=== PATIENT | female | born 1990 | race Caucasian/White ===

== ENCOUNTER 2024-07-29 17:47 | Emergency (ER) | payer SELFPAY ==
[~2024-07-29] VITALS: Ht 149.9 cm; Wt 63.6 kg
[2024-07-29] VITALS (7 sets, daily range): BP systolic 126–155; BP diastolic 58–91
[2024-07-29] MEDS ORDERED: SODIUM CHLORIDE 0.9% 1,000 ML IV ONE ×2 (17:55)
[2024-07-29 18:26] LABS: BASO% 0.6 % (0-3); EOS% 0.9 % (0-8); HEMATOCRIT 37.4 % (37.0-47.0); IMMATURE GRANULOCYTES 0.6 % (0.0-5.0); LYMPH% 11.2 % (15-41); MEAN CELL VOLUME 82.9 fL CALC (80.0-100.0); MEAN CORPUSCULAR HGB 26.6 pG CALC (26.0-32.0); MEAN CORPUSCULAR HGB CONC 32.1 g/dL CAL (32.0-36.0); MONO% 7.2 % (2-13); NEUT# 13.98 thou/uL (2.00-7.15); NEUT% 79.5 % (42-76); RED BLOOD COUNT 4.51 mill/uL (4.20-5.60); RED CELL DISTRI WIDTH 14.9 % (11.5-15.5)
[2024-07-29 18:27] LABS: URINE BILIRUBIN - DIPSTICK Negative (NEGATIVE); URINE BLOOD DIPSTICK Negative (NEGATIVE); URINE COLOR Yellow; URINE GLUCOSE - DIPSTICK Negative (NEGATIVE); URINE KETONE Trace mg/dL (NEGATIVE); URINE LEUK ESTERASE Negative (NEGATIVE); URINE NITRITE - DIPSTICK Negative (Negative); URINE PH 5.5 (4.5-8.0); URINE PROTEIN - DIPSTICK Negative (NEG-TRACE); URINE SPECIFIC GRAVITY 1.015; URINE UROBILINOGEN - DIPSTICK 0.2 E.U./dL (0.2)
[2024-07-29] MEDS ORDERED: PROMETHAZINE HCL 25 MG/TAB PO ONE (18:40)
[2024-07-29 18:42] LABS: ALBUMIN 4.8 g/dL (3.2-5.0); BILIRUBIN, TOTAL 0.4 mg/dL (0.02-1.3); CREATININE 0.4 mg/dL (0.5-1.0); POTASSIUM 3.4 mmol/l (3.5-5.1); TOTAL PROTEIN 7.9 g/dL (6.3-8.2)
== END 2024-07-29 20:02 | disposition home or self-care (01) | DRG 897 ==
LOC: ED 17:47
PROVIDERS: Family Medicine
DX: F10.10 Alcohol abuse, uncomplicated (principal); Y90.6 Blood alcohol level of 120-199 mg/100 ml; F14.90 Cocaine use, unspecified, uncomplicated; M25.571 Pain in right ankle and joints of right foot; F41.9 Anxiety disorder, unspecified